=== PATIENT | female | born 1985 | race Caucasian/White ===

== ENCOUNTER 2018-02-27 16:49 | Emergency (ER) | payer OTHER, SELFPAY ==
[~2018-02-27] VITALS: Ht 162.6 cm; Wt 52.0 kg
[2018-02-27] MEDS ORDERED: CHLORDIAZEPOXIDE 10 MG CAPSULE PO PRN (17:30)
[2018-02-27 17:31] LABS: BASOPHILS # (AUTO) 0.04 x10^3/uL (0-0.1); BASOPHILS % (AUTO) 0 % (0-1); EOSINOPHILS # (AUTO) 0.02 x10^3/uL (0-0.4); EOSINOPHILS % (AUTO) 0 % (1-7); LYMPHOCYTES # (AUTO) 1.79 x10^3/uL (1-3.4); LYMPHOCYTES % (AUTO) 14 % (22-44); MD NO; MEAN CORPUSCULAR HGB CONC 34.2 g/dL (32.4-35.8); MEAN CORPUSCULAR VOLUME 90.6 fL (80-100); MEAN PLATELET VOLUME 8.2 fL (7.4-10.4); MONOCYTES % (AUTO) 4 % (2-9); NEUTROPHILS # (AUTO) 10.22 x10^3/uL (1.8-6.8); NEUTROPHILS % (AUTO) 81 % (42-75); PLATELET COUNT 315 x10^3/uL (130-400); RED BLOOD COUNT 5.31 x10^6/uL (3.82-5.3); RED CELL DISTRIBUTION WIDTH 14.9 % (9.6-15.2)
[2018-02-27 17:41] LABS: ALANINE AMINOTRANSFERASE 21 U/L (12-78); ANION GAP 10 mmol/L (5-15); CALCIUM 8.5 mg/dL (8.5-10.1); CHLORIDE 109 mmol/L (98-107)
[2018-02-27 17:45] LABS: ALKALINE PHOSPHATASE 61 U/L (45-117); BILIRUBIN,TOTAL 0.4 mg/dL (0.2-1.0); TOTAL PROTEIN 7.5 g/dL (6.4-8.2)
[2018-02-27] MEDS ORDERED: CHLORDIAZEPOXIDE 10 MG CAPSULE ONE (18:50)
[2018-02-27 18:56] VITALS: BP 116/77
[2018-02-27] MEDS ORDERED: XANAX (18:56)
[2018-02-27] MEDS ORDERED: SERT100T PO (18:56)
== END 2018-02-27 19:31 | disposition home or self-care (01) ==
LOC: ED 19:07
DX: F13.239 Sedative, hypnotic or anxiolytic dependence with withdrawal, unspecified (principal); F17.200 Nicotine dependence, unspecified, uncomplicated
CPT/HCPCS: 36415; 80053; 84703; 85025; 99284

== ENCOUNTER 2019-01-12 17:38 | Emergency (ER) | payer MEDICAID, OTHER ==
[~2019-01-12] VITALS: Ht 162.6 cm; Wt 63.8 kg
[~2019-01-12 17:38] MED LIST: SERT100T PO; XANAX
--- NOTE | 2019-01-12 17:53 | NUR ---
PT PRESENTED TO ED WITH VAGINAL BLEED SINCE TODAY. PT WAS AT [facility] AT WHICH SHE WENT THERE FOR DETOXING OFF OF HEROINE. PT IS 9 WEEKS AND HAS BEEN SLOWLY DECREASING HER HEROINE USE SINCE SEPTEMBER. PT A&OX4. PT PLACED ON BP AND CONT. PULSE OXIMETER. ASSESSMENT COMPLETED.
[2019-01-12 18:47] LABS: MEAN CORPUSCULAR HEMOGLOBIN 30.9 pg (27.0-34.8); MEAN CORPUSCULAR HGB CONC 34.9 g/dL (32.4-35.8); MEAN CORPUSCULAR VOLUME 88.5 fL (80-100); MEAN PLATELET VOLUME 8.1 fL (7.4-10.4); PLATELET COUNT 391 x10^3/uL (130-400); RED BLOOD COUNT 5.11 x10^6/uL (3.82-5.3); RED CELL DISTRIBUTION WIDTH 13.1 % (9.6-15.2)
[2019-01-12 18:54] LABS: ALBUMIN 4.2 g/dL (3.4-5.0); ANION GAP 9 mmol/L (5-15); CALCIUM 9.1 mg/dL (8.5-10.1); CHLORIDE 104 mmol/L (98-107)
[2019-01-12 19:02] LABS: BASOPHILS # (AUTO) 0.22 x10^3/uL (0-0.1); BASOPHILS % (AUTO) 1 % (0-1); EOSINOPHILS % (AUTO) 0 % (1-7); LYMPHOCYTES # (AUTO) 2.02 x10^3/uL (1-3.4); LYMPHOCYTES % (AUTO) 9 % (22-44); MD SCAN; MONOCYTES # (AUTO) 0.44 x10^3/uL (0.2-0.8); MONOCYTES % (AUTO) 2 % (2-9); NEUTROPHILS # (AUTO) 18.86 x10^3/uL (1.8-6.8); NEUTROPHILS % (AUTO) 88 % (42-75)
[2019-01-12 19:12] LABS: CREATININE 0.82 mg/dL (0.55-1.02)
[2019-01-12 19:18] LABS: MICROSCOPIC INDICATED
[2019-01-12 19:19] LABS: CULTURE INDICATED? YES
[2019-01-12] MEDS ORDERED: CEFTRIAXONE 1,000 MG IM ONE (19:30)
[2019-01-12] MEDS ORDERED: LIDOCAINE-MPF 1%, 5ML ONE (19:50)
[2019-01-12] MEDS ORDERED: CEFTRIAXONE 1,000 MG ONE (19:50)
[2019-01-12 20:21] VITALS: BP 111/64
== END 2019-01-12 20:30 | disposition home or self-care (01) ==
LOC: ED 20:12
DX: O20.9 Hemorrhage in early pregnancy, unspecified (principal); Z3A.10 10 weeks gestation of pregnancy; O99.331 Smoking (tobacco) complicating pregnancy, first trimester
CPT/HCPCS: 36415; 76801; 80048; 81001; 82040; 84702; 85025; 86901; 87086; 96372; 99284; J0696